=== PATIENT | female | born 1970 | race Caucasian/White ===

== ENCOUNTER 2021-02-25 18:04 | Emergency (ER) | payer MEDICAID ==
[~2021-02-25] VITALS: Ht 165.1 cm; Wt 83.9 kg
[2021-02-25 18:41] VITALS: BP_SYST 121
--- NOTE | 2021-02-25 18:54 | NUR ---
Patient triaged and placed in waiting room. VSS and patient appears in no acute distress at this time. Accompanied by self , awaiting available bed, and MD notified of need for MSE.
--- NOTE | 2021-02-25 19:12 | NUR ---
ER in triage examining patient.
[2021-02-25] MEDS ORDERED: HYDR-3919 PO (19:47)
[2021-02-25] MEDS ORDERED: IBUP-1969 PO (19:47)
[2021-02-25] MEDS ORDERED: IBUPROFEN 800 MG TABLET PO ONE (21:15)
--- NOTE | 2021-02-25 21:25 | NUR ---
Patient came in to the emergency room c/o sudden onet of rt foot pain, worse on big toe and second toe, s/p mechanical slip down the stairs approximately at 12pm. Patient reported that she slightly hit her head but she said it is not painful. Denies KO, N/V. Patient's pain is 10/10 at this time. Xray of rt foot done and ER MD Dr Diamond discussed result with patient. Patient breathing easy, V/S stable. Patient is ready for discharge, waiting for ortho shoe.
[2021-02-25 21:45] VITALS: BP_SYST 124
--- NOTE | 2021-02-25 21:45 | NUR ---
Patient given written and verbal discharge instructions and verbalizes understanding. ER MD discussed with patient the results and treatment provided. Patient in stable condition. ID arm band removed. Rx of Ibuprofen 600 mg and [place] 5/325 mg tab sent to patient's preferred pharmacy. Patient educated on pain management and to follow up with PMD. Pain Scale 5/10. Opportunity for questions provided and answered.
== END 2021-02-25 21:45 | disposition home or self-care (01) ==
LOC: SED 18:04
DX: S93.601A Unspecified sprain of right foot, initial encounter (principal); W10.8XXA Fall (on) (from) other stairs and steps, initial encounter; Y93.89 Activity, other specified; Y92.89 Other specified places as the place of occurrence of the external cause; Y99.8 Other external cause status
CPT/HCPCS: 99283